=== PATIENT | male | born 1930 | race Asian ===

== ENCOUNTER 2018-10-20 18:53 | Inpatient (IN) | payer OTHER ==
[~2018-10-20] VITALS: Ht 167.6 cm; Wt 68.7 kg
--- NOTE | 2018-10-20 19:36 | NUR ---
PT BIB DAUGHTER WITH C/O COUGH AND FEVER 101.1F STATED BY DAUGHTER X2 DAYS. DENIES ANY N/V/D. PT DENIES ANY PRODUCTIVE SPUTUM WHEN COUGHING. PT STS HAVING MILD HEADAHCE AT THIS TIME. PT IS HARD OF HEARING AND [place] SPEAKING. DAUGHTER AT BEDSIDE TO TRANSLATE. PLACED ON FULL CM. WILL CONTINUE TO MONITOR.
[2018-10-20 21:02] LABS: BASOPHIL % 0.3 % (0-2); PLATELET COUNT 159 x10^3mcL (130-400); RED CELL DISTRIBUTION WIDTH 13.4 % (11.5-14.5)
[2018-10-20 21:14] LABS: CALCIUM 8.1 mg/dL (8.5-10.1); CARBON DIOXIDE 29.1 mmol/L (21-32); CHLORIDE SERUM 103 mmol/L (98-107); CREATININE SERUM 1.2 mg/dL (0.7-1.3); GLUCOSE SERUM 95 mg/dL (74-106); POTASSIUM SERUM 3.9 mmol/L (3.5-5.1); SODIUM SERUM 140 mmol/L (136-145)
[2018-10-20 21:18] LABS: ALBUMIN 3.5 g/dL (3.4-5.0); ALKALINE PHOSPHATASE 70 U/L (46-116); ALT/SGPT 28 U/L (16-63); AST/SGOT 22 U/L (15-37); BILIRUBIN TOTAL 0.66 mg/dL (0.20-1.00); TOTAL PROTEIN, SERUM 7.3 g/dL (6.4-8.2)
[2018-10-20] MEDS ORDERED: AVODART0.5 M1 PO (21:30)
[2018-10-20] MEDS ORDERED: CARDURA2 MG PO (21:30)
[2018-10-20] MEDS ORDERED: LEVOTHYROXIN0.075 M2 PO (21:30)
[2018-10-20 21:31] LABS: microscopic required? NO
[2018-10-20] MEDS ORDERED: ATORVASTATIN CA20 M1 PO (21:31)
[2018-10-20] MEDS ORDERED: ADCIRCA20 MG PO (21:32)
[2018-10-20] MEDS ORDERED: EZETIMIBE10 M2 PO (21:32)
[2018-10-20 21:40] LABS: UA SPECIFIC GRAVITY <=1.005 (1.005-1.035); urine erythrocyte NEGATIVE (NEGATIVE)
[2018-10-20 22:03] LABS: CHOLESTEROL/HDL RATIO 1.4
--- NOTE | 2018-10-20 22:32 | NUR ---
REPORT GIVEN TO FELISA STANFORD TO ASSUME CARE.
--- NOTE | 2018-10-20 22:55 | NUR ---
RECEIVED PT FROM ED VIA [facility], CAME IN DUE TO FEVER AND COUGH X2 DAYS. AAOX4. PT'S DAUGHTER IS WRITING DOWN IN PAPER IN [place] TO COMMUNICATE WITH THE PT THE PT IS VERY [place]. HAS BLURRY VISION. NO SOB NOTED, LUNG SOUNDS DIMINISHED ON AUSCULTATION, O2 SAT=96%, ON 2LPM/NC. DENIES CHEST PAIN/PRESSURE. DENIES ABDOMINAL DISCOMFORT. VOIDS. RECEIVED PT FROM ED W/ ZITHROMAX ONGOING. IV SITE ON THE LFA IS PATENT AND INTACT. PT'S DAUGHTER AT BEDSIDE. SIDE RAILS UPX2. CALL LIGHT ON REACH. ENDORSED TO PRIMARY NURSE FELISA FOR CONTINUITY OF CARE
[2018-10-20 23:01] VITALS: BP 126/60
[2018-10-20 23:06] VITALS: Ht 167.6 cm; Wt 68.7 kg
[2018-10-21 01:52] LABS: T3 TOTAL 0.85 ng/mL
[2018-10-21 02:06] LABS: FREE T4 1.08 ng/dL (0.76-1.46); FREE THYROXINE INDEX 3.2 ug/dL (1.4-4.5); T4(THYROXINE) 8.6 ug/dL (4.7-13.3)
[2018-10-21 04:39] LABS: AMPHETAMINE QUAL UR NONE DETECTED (See below)
[2018-10-21 05:58] VITALS: BP 118/57
--- NOTE | 2018-10-21 06:16 | NUR ---
PT SLEPT AT INTERVALS THROGHOUT THE NIGHT. BREATHING EVEN AND UNLABORED ON 2L NC. NO RESP DISTRESS NOTED. IV TO LFA RUNNING NS AT 100ML/HR. SITE FREE FROM REDNESS AND SWELLING. ALL NEEDS ASSESSED AND ATTENDE TO. NO SIGNIFICANT CHANGE DURING SHIFT. BED AT LOWEST SETTING. SIDE RAILS X2 UP. CALL LIGHT WITHING REACH. WILL ENDORSE CARE TO AM NURSE.
--- NOTE | 2018-10-21 07:10 | NUR ---
RECEIVED PT FROM TRAFFIC CLERK RN. Rosy/OX4. MED SURG. DENIES CHEST PAIN/PRESSURE. DENIES ANY PAIN AT THIS TIME. RESPIRATIONS EQUAL AND UNLABORED ON 2L NC. DENIES SOB. PT C/O WEAKNESS TO CELIO. IV PATENT AND INFUSING TO LFA. NO REDNESS OR SWELLING NOTED. SON AT BEDSIDE. WILL CONTINUE TO MONITOR. CALL LIGHT IN REACH. BED IN LOWEST POSITION.
--- NOTE | 2018-10-21 08:16 | NUR ---
DR. MARTIN AND DR. HENRY AT BEDSIDE. PT WILL STAY ONE MORE NIGHT TO MONITOR FOR FEVER. PER DR. HENRY D/C IV FLUIDS. IV SALINE LOCKED TO LFA. NO REDNESS OR SWELLING NOTED.
[2018-10-21 09:20] VITALS: BP 125/56
--- NOTE | 2018-10-21 09:33 | NUR ---
PT SITTING UP IN BED. DAUGHTER AT BEDSIDE. PT JUST RECEIVED BREATHING TREATMENT. RESPIRATIONS EQUAL AND UNLABORED ON RA. DENIES ANY SOB AT THIS TIME. GIVEN PO MED. TOLERATED WELL. PT STATES HE NO LONGER HAD LEFT ARM WEAKNESS. IV SALINE LOCKED TO LFA. NO REDNESS OR SWELLING NOTED. WILL CONTINUE TO MONITOR. CALL LIGHT IN REACH. BED IN LOWEST POSITION.
--- NOTE | 2018-10-21 12:16 | NUR ---
PT SITTING UP IN BED READING NEWSPAPER. NO ACUTE RESP DISTRESS NOTED ON RA. PT DENIES ANY PAIN AT THIS TIME. DAUGHTER AT BEDSIDE ASKING WHEN ANTIBIOITICS WILL BE GIVEN. INFORMED DAUGHTER ROCEPHIN IS GIVEN EVERY 24 HOURS, PT RECEIVED A DOSE IN ER LAST NIGHT AND PT WILL RECEIVE ANOTHER DOSE TONIGHT. FAMILY VERBALIZED UNDERSTANDING. WILL CONTINUE TO MONITOR. CALL LIGHT IN REACH. BED IN LOWEST POSITION.
--- NOTE | 2018-10-21 14:13 | NUR ---
PT SITTING UP IN BED. NO ACUTE RESP DISTRESS NOTED ON RA. PT DENIES ANY SOB AT THIS TIME. PT DENIES ANY PAIN AT THIS TIME. WILL CONTINUE TO MONITOR. CALL LIGHT IN REACH. BED IN LOWEST POSITION.
[2018-10-21 16:31] VITALS: BP 98/49
--- NOTE | 2018-10-21 18:56 | NUR ---
PT SITTING UP IN BED. NO ACUTE RESP DISTRESS NOTED ON RA. PT STATES HE FEELS A
--- NOTE | 2018-10-21 19:20 | NUR ---
PT RECEIVED FROM AM NURSE. PT A/O X4, [place] SPEAKING, ABLE TO MAKE NEEDS KNOWN, [place] ORA EARS. MED-SURG, DENIES ANY CP/PRESSURE. PULSES PALPABLE, NO EDEMA PRESENT. BREATHING IS EVEN AND UNLABORED ON RA, DENIES SOB, NO RESP DISTRESS OBSERVED. ABD SOFT AND NONDISTENDED, BOWEL TONES ACTIVE X4 QUAD, DENIES N/V. VOIDS FREELY, BRP. AMBULATORY WITH STEADY GAIT. SKIN IS WARM AND DRY, INTACT. IV TO LFA, PATENT AND INTACT, SITE WNL. NO ACUTE DISTRESS NOTED. DAUGHTER AT BEDSIDE. BED IN LOWEST SETTING, SIDE RAILS UP X2, CALL LIGHT WITHIN REACH. WILL CONT TO MONITOR.
[2018-10-21 20:24] VITALS: BP 99/50
--- NOTE | 2018-10-22 05:15 | NUR ---
PT SLEPT WELL THROUGHOUT THE EVENING. BREATHING IS EVEN AND UNLABORED, NO RESP DISTRESS NOTED. PT DENIES HAVING ANY PAIN AT THIS TIME. NO ACUTE CHANGES ENCOUNTERED DURING SHIFT. ALL NEEDS MET AND ANTICIPATED. PT COMPLIANT WITH NURSING CARE. IV TO LFA, PATENT AND INTACT, SITE WNL. CALL LIGHT WITHIN REACH. WILL ENDORSE CARE TO AM NURSE.
[2018-10-22 05:18] VITALS: BP 123/62
--- NOTE | 2018-10-22 06:20 | NUR ---
PT REQUESTING BREATHING TX. RT CALLED AND MADE AWARE. RT AT BEDSIDE. NO ACUTE DISTRESS NOTED.
[2018-10-22 06:22] LABS: BASOPHIL % 0.1 % (0-2); PLATELET COUNT 154 x10^3mcL (130-400); RED CELL DISTRIBUTION WIDTH 13.9 % (11.5-14.5)
[2018-10-22 06:51] LABS: CALCIUM 7.7 mg/dL (8.5-10.1); CARBON DIOXIDE 26.6 mmol/L (21-32); CHLORIDE SERUM 108 mmol/L (98-107); CREATININE SERUM 1.4 mg/dL (0.7-1.3); GLUCOSE SERUM 127 mg/dL (74-106); MAGNESIUM 2.1 mg/dL (1.8-2.4); PHOSPHOROUS 4.3 mg/dL (2.5-4.9); POTASSIUM SERUM 4.5 mmol/L (3.5-5.1); SODIUM SERUM 143 mmol/L (136-145)
--- NOTE | 2018-10-22 07:25 | NUR ---
RECEIVED PATIENT AWAKE/ALERT IN BED, NO DISTRESS NOTED. VERY [place] BILATERAL. DENIES ANY PAIN. POC EXPLAINED. CALL LIGHT WITHIN REACH.
--- NOTE | 2018-10-22 07:33 | NUR ---
PT IN NO ACUTE DISTRESS. CONTINUITY OF CARE ENDORSED TO AM NURSE. ALL QUESTIONS AND CONCERNS ADDRESSED.
[2018-10-22 09:00] VITALS: BP 114/56
--- NOTE | 2018-10-22 09:09 | NUR ---
PATIENT AMBULATE TO BATHROOM INDEPENDENT, STEADY GAIT. ALL DUE MEDS ADMINISTERED. PATIENT TOLERATED WELL. CONT TO MONITOR. CALL LIGHT WITHIN REACH.
[2018-10-22] MEDS ORDERED: ZITHROMAX500 MG PO (10:40)
[2018-10-22] MEDS ORDERED: MUCINEX600 MG PO (10:51)
[2018-10-22 13:00] VITALS: BP 114/56
--- NOTE | 2018-10-22 13:30 | NUR ---
DISCHARGE INSTRUCTION AND PRESCRIPTION EXPLAINED TO DTR [facility]. INSTRUCT TO F/U WITH PCP IN 1 WEEK. IV TO LFA REMOVED WITH CATHETER INTACT. NO S/S OF SWELLING OR INFECTION NOTED. GAUZES APPLIED TO SITE. CALL FORM TAMPER OPERATOR TO ASSIST WHEEL PATIENT OUT. ALL BELONGINGS WITH DTR.
--- NOTE | 2018-10-22 13:38 | NUR ---
RETURN PATIENT HOME MEDS TO [facility].
== END 2018-10-22 13:39 | disposition home or self-care (01) | DRG 195 ==
LOC: ED 18:53 → MU 22:06
PROVIDERS: Emergency Medicine; ADMIT Internal Medicine
DX: J18.9 Pneumonia, unspecified organism (principal); R06.00 Dyspnea, unspecified; N40.0 Benign prostatic hyperplasia without lower urinary tract symptoms; H40.9 Unspecified glaucoma; E78.5 Hyperlipidemia, unspecified; E03.9 Hypothyroidism, unspecified; D64.9 Anemia, unspecified; Z68.24 Body mass index [BMI] 24.0-24.9, adult
CPT/HCPCS: 83880; 84439; G0378; J0456; J0696; J2930; J7030; J7050; J7060; J7613; J7620; J7644; Q0092